=== PATIENT | female | born 1945 ===

== ENCOUNTER 2017-09-06 09:32 | Inpatient (IN) | payer OTHER ==
[~2017-09-06] VITALS: Ht 157.5 cm; Wt 59.0 kg
== END 2017-09-10 16:21 | disposition home or self-care (01) | DRG 375 ==
LOC: ER 09:32 → MEDJ 09-07 12:07 → SEC-K 09-07 12:07 → SURH 09-07 16:47 → MEDJ 09-07 17:28
PROC: 0DBN8ZX Excision of Sigmoid Colon, Via Natural or Artificial Opening Endoscopic, Diagnostic (ICD-10-PCS; principal; 2017-09-07)
DX: C19 Malignant neoplasm of rectosigmoid junction (principal); K62.5 Hemorrhage of anus and rectum; K56.699 Other intestinal obstruction unspecified as to partial versus complete obstruction; K59.09 Other constipation; K62.89 Other specified diseases of anus and rectum; K64.2 Third degree hemorrhoids

== ENCOUNTER 2017-10-12 11:30 | Inpatient (IN) | payer OTHER ==
[~2017-10-12] VITALS: Ht 152.4 cm; Wt 49.9 kg
[2017-10-12] MEDS ORDERED: LEVSIN0.125 MG PO (14:01)
[2017-10-12] MEDS ORDERED: PEPCID40 MG PO (14:01)
== END 2017-10-24 15:32 | disposition home or self-care (01) | DRG 330 ==
LOC: SURH 10-19 07:00 → O/R 10-19 10:00 → SURH 10-19 10:00
PROVIDERS: Colon & Rectal Surgery
PROC: 0DTP4ZZ Resection of Rectum, Percutaneous Endoscopic Approach (ICD-10-PCS; 2017-10-19)
PROC: 07TC4ZZ Resection of Pelvis Lymphatic, Percutaneous Endoscopic Approach (ICD-10-PCS; 2017-10-19)
PROC: 0UQG4ZZ Repair Vagina, Percutaneous Endoscopic Approach (ICD-10-PCS; 2017-10-19)
PROC: 0DJD8ZZ Inspection of Lower Intestinal Tract, Via Natural or Artificial Opening Endoscopic (ICD-10-PCS; 2017-10-19)
PROC: 0DTN4ZZ Resection of Sigmoid Colon, Percutaneous Endoscopic Approach (ICD-10-PCS; principal; 2017-10-19 07:00)
DX: C19 Malignant neoplasm of rectosigmoid junction (principal); K56.690 Other partial intestinal obstruction; D64.89 Other specified anemias; Z53.29 Procedure and treatment not carried out because of patient's decision for other reasons; K62.89 Other specified diseases of anus and rectum